=== PATIENT | female | born 1965 | race Caucasian/White ===

== ENCOUNTER → 2019-01-28 | Outpatient (CLI) | payer BC ==
[~2019-01-28] MED LIST: ATENOLOL50 MG PO; COUMADIN 77.5 MG/TAB PO; LASIX 40MG TABL40 MG PO; MICRO-K8 MEQ PO; PRILOSEC 20MG20 MG PO; PULMOCORT; ZOLOFT100 MG PO; [UNRECOGNIZED DRUG - OTHER]
== END ==
LOC: COL.VAS 13:30
DX: G47.33 Obstructive sleep apnea (adult) (pediatric) (principal)

== ENCOUNTER 2020-11-10 13:48 | Day surgery (SDC) | payer BC ==
[2020-11-10] VITALS (8 sets, daily range): BP systolic 121–135; BP diastolic 64–75; PULSE 55–78; TEMP 98.2–98.6
[~2020-11-10] VITALS: Ht 180.3 cm; Wt 85.9 kg
[2020-11-10] MEDS ORDERED: MENOSTAR1 EACH TD (14:19)
[2020-11-10] MEDS ORDERED: LANTUS SOLOS100 U/ML SQ (14:20)
[2020-11-10] MEDS ORDERED: LIPITOR 10MG10 MG PO (14:21)
[2020-11-10] MEDS ORDERED: BUMEX 1MG TA1 MG/TA1 PO (14:21)
[2020-11-10] MEDS ORDERED: ZYRTEC 10MG10 MG PO (14:23)
[2020-11-10] MEDS ORDERED: INVOKAMET4 PO (14:24)
[2020-11-10] MEDS ORDERED: SYNTHROID0.088 MG/T PO (14:24)
[2020-11-10] MEDS ORDERED: SINGULAIR 110 MG/TAB PO (14:25)
[2020-11-10] MEDS ORDERED: RESTASIS 60VL (14:26)
[2020-11-10] MEDS ORDERED: ZOLOFT 100MG100 MG PO (14:27)
[2020-11-10] MEDS ORDERED: ALDACTONE50 MG PO (14:28)
[2020-11-10] MEDS ORDERED: COUMADIN4 MG PO (14:29)
[2020-11-10] MEDS ORDERED: POTASSIUM PO (14:32)
[2020-11-10] MEDS ORDERED: PRILOTC (14:33)
[2020-11-10] MEDS ORDERED: FLINTSTONES PLU1 CT1 PO (14:34)
[2020-11-10] MEDS ORDERED: SYSTANE 0.4%-0.1 SOL OP (14:35)
[2020-11-10] MEDS ORDERED: PYRIDIUM 100MG100 MG PO (17:19)
[2020-11-10] MEDS ORDERED: NORCO 325 MG-51 TAB PO (17:20)
--- NOTE | 2020-11-10 19:10 | NUR ---
Patient doing well since up from OR. Eating supper at this time. Voiding blood tinged urine. Pain medication given for right flank pain. Post op VSS. Denies further needs at this time. Will report off to night warehouse manager.
--- NOTE | 2020-11-10 19:52 | NUR ---
Patient tolerated dinner well. Got up again to void. Requested to lay back down for a little bit. Post op vitals stable.
--- NOTE | 2020-11-10 20:48 | NUR ---
Went over discharge instructions with patient. No questions or concerns. IV discontinued. INFANTRY OPERATIONS SPECIALIST walked patient out with all of their belongings to go home with .
== END 2020-11-10 20:50 | disposition home or self-care (01) ==
LOC: SDCO 13:48 → SURG 18:21 → SDCO 20:50
DX: N13.2 Hydronephrosis with renal and ureteral calculous obstruction (principal); N30.11 Interstitial cystitis (chronic) with hematuria; E11.8 Type 2 diabetes mellitus with unspecified complications; I11.0 Hypertensive heart disease with heart failure; I50.9 Heart failure, unspecified; F32.9 Major depressive disorder, single episode, unspecified; K21.9 Gastro-esophageal reflux disease without esophagitis; G47.33 Obstructive sleep apnea (adult) (pediatric); E06.3 Autoimmune thyroiditis; E78.5 Hyperlipidemia, unspecified; E87.6 Hypokalemia; R10.2 Pelvic and perineal pain; F41.9 Anxiety disorder, unspecified; R60.9 Edema, unspecified; D68.59 Other primary thrombophilia; Z79.01 Long term (current) use of anticoagulants; Z79.4 Long term (current) use of insulin; Z86.711 Personal history of pulmonary embolism; Z79.890 Hormone replacement therapy; Z91.040 Latex allergy status; Z98.84 Bariatric surgery status
CPT/HCPCS: OP; C1769; C1894; C2617; J0690; J2405; J2704; J3010; J7030; J7042; Q9967